=== PATIENT | male | born 1980 | race American Indian/Alaskan Native ===

== ENCOUNTER 2019-02-20 20:39 | Observation (INO) | payer MEDICAID ==
[2019-02-20 21:07] VITALS: BMI 25.1
--- NOTE | 2019-02-20 21:30 | ED PDOC ---
Arrival/HPI - General Chief Complaint: Substance Abuse Historian: Patient - History of Present Illness Narrative History of Present Illness (Text): 02/20/19 21:18 38 y/o male, pmh including menegitis/coma, psychiatric history including depression/anxiety/drug abuse, allergic to morphine and bactrim, c/o depression and drug abuse x 1 day. Pt. stated that he has chronic drug abuse including using marijuanna and K2, stated that he is depress, admits problem with drugs, stated that he wants to speak to a psychiatrist, no chest pain or shortness of breath, no rash, no night sweat, no abdominal pain, no black color stool, no homicidal/suicidal ideation, no auditory or visual hallucination, no other medical or psychological complaints. Past Medical History - Provider Review Nursing Documentation Reviewed: Yes - Infectious Disease Hx of Infectious Diseases: None - Neurological Hx Meningitis: Yes - Psychiatric Hx Substance Use: Yes Other/Comment: Substance abuse - Surgical History Other/Comment: Toe amputation - Anesthesia Hx Anesthesia: Yes Hx Anesthesia Reactions: No Hx Malignant Hyperthermia: No Family/Social History - Physician Review Nursing Documentation Reviewed: Yes Family/Social History: Unknown Family HX Smoking Status: Light Smoker < 10 Cigarettes Daily Hx Alcohol Use: No Hx Substance Use: Yes Substance used: marijuana, k2 Allergies/Home Meds Allergies/Adverse Reactions: Allergies morphine Allergy (Verified 02/20/19 21:07) RASH sulfamethoxazole [From Bactrim] Allergy (Verified 02/20/19 21:06) RASH trimethoprim [From Bactrim] Allergy (Verified 02/20/19 21:06) RASH Home Medications: Home Meds Medication Instructions Recorded Confirmed Clonazepam [Klonopin] 1 tab PO DAILY 02/20/19 02/20/19 Fluoxetine HCl [Prozac] 1 tab PO DAILY 02/20/19 02/20/19 Review of Systems - Review of Systems Constitutional: absent: Fatigue, Fevers Eyes: absent: Vision Changes ENT: absent: Hearing Changes Respiratory: absent: SOB, Cough Cardiovascular: absent: Chest Pain Gastrointestinal: absent: Abdominal Pain, Diarrhea, Nausea, Vomiting Musculoskeletal: absent: Arthralgias, Back Pain Skin: absent: Rash, Pruritis Neurological: absent: Headache, Dizziness Psychiatric: Depression. absent: Anxiety, Suicidal Ideation Physical Exam Vital Signs Reviewed: Yes Temperature: Afebrile Blood Pressure: Normal Pulse: Regular Respiratory Rate: Normal Appearance: Positive for: Well-Appearing, Non-Toxic, Comfortable Pain Distress: None Mental Status: Positive for: Alert and Oriented X 3 - Systems Exam Head: Present: Atraumatic, Normocephalic, Other (bilateral temporal muscle wasting) Pupils: Present: PERRL Extroacular Muscles: Present: EOMI Conjunctiva: Present: Normal Mouth: Present: Moist Mucous Membranes Neck: Present: Normal Range of Motion, Trachea Midline. No: Meningeal Signs, MIDLINE TENDERNESS, Paraspinal Tenderness, Lymphadenopathy Respiratory/Chest: Present: Clear to Auscultation, Good Air Exchange. No: Respiratory Distress, Accessory Muscle Use, Wheezes, Decreased Breath Sounds, Rales, Retracting, Rhonchi, Tachypneic Cardiovascular: Present: Regular Rate and Rhythm, Normal S1, S2. No: Murmurs Abdomen: No: Tenderness, Distention, Peritoneal Signs Rectal: Present: Hemorrhoids, Normal Rectal Tone, Other (Female Verification Specialist CAR STEREO INSTALLERAURELIO Fernandez). No: Occult Blood, Rectal Tenderness, Gross Blood, Melena, Fissures, Nodule/Mass/Lesions Back: Present: Normal Inspection Upper Extremity: Present: Normal Inspection. No: Cyanosis, Edema Lower Extremity: Present: Normal Inspection, Other (bilateral feet with toes amputated noted. ). No: Edema Neurological: Present: GCS=15, CN II-XII Intact, Speech Normal Skin: Present: Warm, Dry, Rashes (Lt. foot dorsum visible superficial skin ulcerated approximately 2cm diameter with no cellulitis or streaking. ), Normal Color Psychiatric: Present: Alert, Oriented x 3, Normal Insight, Normal Concentration Medical Decision Making ED Course and Treatment: 02/20/19 21:39 -labs -ekg -cxr -PES paged 02/20/19 23:20 -EKG: NSR @ 71 BPM, no ST elevation or depression, no T wave inversion -Chest xray ER wet read show no obvious consolidation. -Labs show leukoepnia 1.5 and hgb 9.1, Potassium 3.5 (mildly low, potassium chloride 20meq po ordered). -Guaiac is negative -UA ordered and no result -UDS ordered and no result -Pt. is not medically clear as the source of leukopenia and anemia is uncertain, from his psychiatric medication. Discussed with Dr. Morrell and recommend medical admission. -Keflex/blood culture and wound cultures ordered. -PES notified that the patient will be admitted medically. -Paging the hospitalist Dr. Duran for admission. 02/20/19 23:30 -I spoke to Dr. Duran in person, he request repeat cbc as he is concerning that this is an error prior to the admission but he agreed this patient needs medical work up including any HIV vs. cancer or bone marrow suppression or medication induced?. Case endorsed to Dr. Duran for continuous medical care. -Repeat CBC ordered 02/20/19 23:42 -Repeated CBC confirmed the previous lab work, discussed with Dr. Duran. Keflex po ordered for his lt. foot stump superficial skin breaking. Blood and wound cultured ordered as well. He agreed to admit the patient to hospitalist service for further evaluation and official chest xray interpretation -Case discussed/labs/radiology discussed with Dr. Morrell, he agreed on the plan of care and admission plan. - RAD Interpretation Cushion Stuffer: Radiologist - PA / SUIT MAKER / Resident Statement MD/DO has reviewed & agrees with the documentation as recorded. Disposition/Present on Arrival - Present on Arrival Any Indicators Present on Arrival: No History of DVT/PE: No History of Uncontrolled Diabetes: No Urinary Catheter: No History of Decub. Ulcer: No History Surgical Site Infection Following: None - Disposition Have Diagnosis and Disposition been Completed?: Yes Diagnosis: Depression, Drug abuse, Leukopenia, Anemia, Wound of foot, Muscle wasting, Hypokalemia Disposition: HOSPITALIZED Disposition Time: 23:25 Patient Plan: Observation Condition: STABLE
[2019-02-20 22:16] LABS: BASO # 0.01 K/mm3 (0.0-2.0); BASO % 0.7 % (0.0-3.0); EOS % 1.3 % (1.5-5.0); HEMOGLOBIN 9.1 g/dL (14.0-18.0); LYMPH # 0.5 (1.2-3.4); LYMPH % 34.7 % (22.0-35.0); MEAN CELL VOLUME 89.8 fl (80.0-105.0); MEAN CORPUSCULAR HGB CONC 32.3 g/dl (31.0-37.0); MEAN PLATELET VOLUME 9.7 fl (7.0-11.0); MONO # 0.1 (0.1-0.6); MONO % 8.7 % (1.0-6.0); PLATELET COUNT 194 10^3/uL (120.0-450.0); RBC 3.14 10^6/uL (3.5-6.1); RED CELL DISTRIBUTION WIDTH 18.1 % (11.5-14.5)
[2019-02-20 22:21] LABS: WHITE BLOOD COUNT 1.5 10^3/uL (4.5-11.0)
[2019-02-20 22:28] LABS: ALB/GLOB RATIO 0.8 (1.1-1.8); ALT/SGPT 36 U/L (7-56); AST/SGOT 28 U/L (17-59); BLOOD UREA NITROGEN 15 mg/dL (7-21); CALCIUM 8.7 mg/dL (8.4-10.5); GFR NON-AFRICAN AMERICAN > 60
[2019-02-20 22:32] LABS: ACETAMINOPHEN < 10.0 ug/ml (10.0-20.0); SALICYLATE < 1 mg/dL (2.0-20.0)
[2019-02-20 22:56] LABS: BASOPHIL 1 % (0.0-1.0); LYMPHOCYTE 35 % (22.0-35.0); MONOCYTE 6 % (1.0-6.0); NEUTROPHIL 58 % (50.0-70.0)
[2019-02-20 22:57] LABS: LARGE PLATELETS PRESENT; PLATELET ESTIMATE NORMAL (NORMAL)
[2019-02-21 00:08] LABS: EOS % 0.6 % (1.5-5.0); HEMOGLOBIN 9.1 g/dL (14.0-18.0); LYMPH # 0.6 (1.2-3.4); LYMPH % 36.9 % (22.0-35.0); MEAN CELL VOLUME 89.8 fl (80.0-105.0); MEAN CORPUSCULAR HEMOGLOBIN 28.9 pg (25.0-35.0); MEAN CORPUSCULAR HGB CONC 32.2 g/dl (31.0-37.0); MEAN PLATELET VOLUME 10.7 fl (7.0-11.0); MONO # 0.2 (0.1-0.6); MONO % 14.3 % (1.0-6.0); RBC 3.15 10^6/uL (3.5-6.1); RED CELL DISTRIBUTION WIDTH 18.1 % (11.5-14.5)
[2019-02-21 00:13] LABS: WHITE BLOOD COUNT 1.7 10^3/uL (4.5-11.0)
[2019-02-21] MEDS ORDERED: Potassium Chloride 20 mEq ER Tab PO STA (00:27)
[2019-02-21 01:32] LABS: IRON 33 ug/dL (45-180)
[2019-02-21 01:42] LABS: % IRON SATURATION 15 % (20-55); TOTAL IRON BINDING CAPACITY 219 ug/dL (261-462)
[2019-02-21 01:49] LABS: FREE T4 1.05 ng/dL (0.78-2.19)
--- NOTE | 2019-02-21 02:27 | CP.PCM.HP ---
History of Present Illness - History of Present Illness History of Present Illness: PGY-1 History and Physical [address] Dr. Duran Patient is a 38 year old male with PMHx meningitis/coma (as per ED - patient unable to give medical history). On presentation, patient is found to be somnolent and not easily arousable. He is able to wake up and respond to some questions but not able to cooperate with a complete patient interview. Patient did state that he smoke marijuana and K2, and did deny using any other drugs including IV drugs. Patient denied drinking any alcohol. When asked how he ended up in the hospital, patient states he was brought by his mother. Patient denies hx diabetes when questioned about apparent b/l multiple toe amputations. PMHx: Unable to obtain PSHx: Unable to obtain All: Morphine, Bactrim Social: Unable to obtain Family Hx: Unable to obtain Meds: Unable to obtain Present on Admission - Present on Admission Any Indicators Present on Admission: No Review of Systems - Review of Systems Systems not reviewed;Unavailable: Altered Mental Status, Intoxicated, Uncooperative Past Patient History - Infectious Disease Hx of Infectious Diseases: None - Past Social History Smoking Status: Light Smoker < 10 Cigarettes Daily - NEUROLOGICAL Hx Meningitis: Yes - PSYCHIATRIC Hx Substance Use: Yes Other/Comment: Substance abuse - SURGICAL HISTORY Other/Comment: Toe amputation - ANESTHESIA Hx Anesthesia: Yes Hx Anesthesia Reactions: No Hx Malignant Hyperthermia: No Meds Allergies/Adverse Reactions: Allergies Allergy/AdvReac Type Severity Reaction Status Date / Time morphine Allergy RASH Verified 02/20/19 21:07 sulfamethoxazole Allergy RASH Verified 02/20/19 21:06 [From Bactrim] trimethoprim [From Bactrim] Allergy RASH Verified 02/20/19 21:06 Physical Exam - Constitutional Appears: No Acute Distress Additional comments: Patient intoxicated and somnolent, but in no acute distress - Head Exam Head Exam: ATRAUMATIC, NORMOCEPHALIC - Eye Exam Eye Exam: EOMI, Normal appearance - ENT Exam ENT Exam: Mucous Membranes Moist - Respiratory Exam Respiratory Exam: Clear to Auscultation Bilateral, NORMAL BREATHING PATTERN. absent: Rhonchi, Wheezes - Cardiovascular Exam Cardiovascular Exam: REGULAR RHYTHM, +S1, +S2 - GI/Abdominal Exam GI & Abdominal Exam: Normal Bowel Sounds, Soft. absent: Tenderness - Extremities Exam Additional comments: Apparent amputation of all toes bilaterally. Abscess draining purulent fluid on dorsal aspect of left foot approx 1cm diameter. - Neurological Exam Neurological exam: Oriented x3 Additional comments: Somnolent, not cooperating for complete neuro exam. Patient is A and O x3 - Psychiatric Exam Psychiatric exam: Normal Affect, Normal Mood - Skin Skin Exam: Dry, Intact Additional comments: Decreased skin turgor Results - Vital Signs Recent Vital Signs: Last Vital Signs Temp 96.9 F L 02/21/19 01:52 Pulse 67 02/21/19 01:52 Resp 16 02/21/19 01:52 BP 94/58 L 02/21/19 01:52 Pulse Ox 99 02/21/19 01:52 - Labs Result Diagrams: 02/20/19 23:40 02/20/19 22:12 Labs: Laboratory Results - last 24 hr 02/20/19 02/20/19 02/20/19 22:12 22:12 22:12 WBC RBC Hgb Hct MCV MCH MCHC RDW Plt Count MPV Neut % (Auto) Lymph % (Auto) [place] % (Auto) Eos % (Auto) Baso % (Auto) Lymph # (Auto) [place] # (Auto) Eos # (Auto) Baso # (Auto) Absolute Neuts (auto) Neutrophils % (Manual) Lymphocytes % (Manual) Monocytes % (Manual) Basophils % (Manual) Platelet Evaluation Large Platelets Sodium 139 Potassium 3.5 L Chloride 110 H Carbon Dioxide 21 Anion Gap 12 BUN 15 Creatinine 1.1 Est GFR ( Amer) > 60 Est GFR (Non-Af Amer) > 60 Random Glucose 95 Calcium 8.7 Iron TIBC % Saturation Total Bilirubin 0.1 L AST 28 ALT 36 Alkaline Phosphatase 86 Total Protein 6.6 Albumin 3.0 Globulin 3.6 Albumin/Globulin Ratio 0.8 L Free T4 Salicylates < 1 L Acetaminophen < 10.0 L Alcohol, Quantitative < 10 02/20/19 02/20/19 02/20/19 22:12 22:12 22:12 WBC 1.5 L* RBC 3.14 L Hgb 9.1 L Hct 28.2 L MCV 89.8 MCH 29.0 MCHC 32.3 RDW 18.1 H Plt Count 194 MPV 9.7 Neut % (Auto) 54.6 Lymph % (Auto) 34.7 [place] % (Auto) 8.7 H Eos % (Auto) 1.3 L Baso % (Auto) 0.7 Lymph # (Auto) 0.5 L [place] # (Auto) 0.1 Eos # (Auto) 0.0 Baso # (Auto) 0.01 Absolute Neuts (auto) 0.82 L Neutrophils % (Manual) 58 Lymphocytes % (Manual) 35 Monocytes % (Manual) 6 Basophils % (Manual) 1 Platelet Evaluation Normal Large Platelets Present Sodium Potassium Chloride Carbon Dioxide Anion Gap BUN Creatinine Est GFR ( Amer) Est GFR (Non-Af Amer) Random Glucose Calcium Iron 33 L TIBC 219 L % Saturation 15 L Total Bilirubin AST ALT Alkaline Phosphatase Total Protein Albumin Globulin Albumin/Globulin Ratio Free T4 1.05 Salicylates Acetaminophen Alcohol, Quantitative 02/20/19 23:40 WBC 1.7 L* RBC 3.15 L Hgb 9.1 L Hct 28.3 L MCV 89.8 MCH 28.9 MCHC 32.2 RDW 18.1 H Plt Count 198 MPV 10.7 Neut % (Auto) 48.2 L Lymph % (Auto) 36.9 H [place] % (Auto) 14.3 H Eos % (Auto) 0.6 L Baso % (Auto) 0.0 Lymph # (Auto) 0.6 L [place] # (Auto) 0.2 Eos # (Auto) 0.0 Baso # (Auto) 0.00 Absolute Neuts (auto) 0.81 L Neutrophils % (Manual) Lymphocytes % (Manual) Monocytes % (Manual) Basophils % (Manual) Platelet Evaluation Large Platelets Sodium Potassium Chloride Carbon Dioxide Anion Gap BUN Creatinine Est GFR ( Amer) Est GFR (Non-Af Amer) Random Glucose Calcium Iron TIBC % Saturation Total Bilirubin AST ALT Alkaline Phosphatase Total Protein Albumin Globulin Albumin/Globulin Ratio Free T4 Salicylates Acetaminophen Alcohol, Quantitative Assessment & Plan - Assessment and Plan (Free Text) Assessment: 38 year old male with no confirmed PMHx (meningitis per ED) who admits to marijuana and K2 use who appears somnolent, possibly intoxicated, and found to have leukopenia and anemia on labs and has a small abscess on the right foot about 1 cm diameter draining purulent fluid. Leukopenia -WBC 1.5 - repeated to confirm not due to lab error and repeat WBC 1.7 -HIV 1 and 2 -Vanc, Zosyn Left foot abscess -Cultures (blood, wound, urine) - f/u -Lower extremity US -Pro-chapito -Vanc, Zosyn Altered mental status, potentially due to acute intoxication -Patient admits to active and regular use of marijuana and K2 -Psych consulted. Dr. Johnson-Maddy -EKG NSR at 71 bpm, no ST or T changes -TSH/free T4 - f/u -UDS - f/u -Blood alcohol negative Anemia -HgB 9.1 -Normocytic anemia -Iron, TIBC, B12, folate - f/u PPx -DVT ppx held overnight 2/2 anemia with HgB 9.1. SCDs overnight held due to foot abscess. Assessment and plan d/w Dr. Renee Lerner, PGY-1
[2019-02-21 03:27] VITALS: BP 106/66; PULSE 72; RESP 18; TEMP 97.5; O2SAT 98
[2019-02-21 07:13] LABS: BASO # 0.01 K/mm3 (0.0-2.0); BASO % 0.5 % (0.0-3.0); LYMPH # 0.6 (1.2-3.4); LYMPH % 31.4 % (22.0-35.0); MEAN CELL VOLUME 90.9 fl (80.0-105.0); MEAN CORPUSCULAR HEMOGLOBIN 28.5 pg (25.0-35.0); MEAN CORPUSCULAR HGB CONC 31.3 g/dl (31.0-37.0); MEAN PLATELET VOLUME 9.9 fl (7.0-11.0); MONO # 0.3 (0.1-0.6); MONO % 16.2 % (1.0-6.0); RBC 3.51 10^6/uL (3.5-6.1); RED CELL DISTRIBUTION WIDTH 18.2 % (11.5-14.5)
[2019-02-21 08:35] LABS: ALB/GLOB RATIO 0.8 (1.1-1.8); ALBUMIN 3.1 g/dL (3.0-4.8); ALT/SGPT 38 U/L (7-56); AST/SGOT 30 U/L (17-59); BLOOD UREA NITROGEN 14 mg/dL (7-21); CALCIUM 8.7 mg/dL (8.4-10.5); GFR NON-AFRICAN AMERICAN > 60
--- NOTE | 2019-02-21 08:36 | RAD ---
HISTORY: medical clearance COMPARISON: None available. TECHNIQUE: Chest, one view. FINDINGS: LUNGS: Patchy opacity at the left lung base. Please note that chest x-ray has limited sensitivity for the detection of pulmonary masses. PLEURA: No significant pleural effusion identified. No definite pneumothorax . CARDIOVASCULAR: The cardiomediastinal silhouette appears within normal limits of size. No significant atherosclerotic calcification present. OSSEOUS STRUCTURES: No acute osseous abnormality identified. VISUALIZED UPPER ABDOMEN: Unremarkable. OTHER FINDINGS: None. IMPRESSION: Mild patchy left base atelectasis or pneumonia. Correlate clinically. Study marked for PA review.
--- NOTE | 2019-02-21 09:23 | CARD ---
APPROVED REPORT Date of service: 02/20/2019 EKG Measurement Heart [id number] <Conclusion> Normal sinus rhythm Normal ECG
[2019-02-21] MEDS ORDERED: Piperacillin/Tazobact 3.375 gm 100 ML IVPB SCH (10:00)
[2019-02-21] MEDS ORDERED: Vancomycin 1gm in NS 250ml 1 GM/250 ML BAG IVPB SCH (10:00)
--- NOTE | 2019-02-21 13:27 | CP.PCM.CON ---
<Hi Pedroza - Last Filed: 02/21/19 13:27> History of Present Illness - History of Present Illness History of Present Illness: Hi Pedroza D.O. PGY-3, Internal Medicine Resident, Infectious Disease Consultation Note 38-year-old male with a 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 Infectious disease consultation was requested for patient's neutropenia. Patient was seen and examined at bedside. 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 Patient is very tangential, going from one topic to another and relates how he needs to get all of his money together so that he combine his cell phone because people keep stealing his things. Patient is very focused on getting back to [place] and out of [facility] at this time. States that he feels absolutely fine and has no issues. Patient does have a history of drug abuse including marijuana and K2. At this time denies any nausea vomiting diarrhea constipation lightheadedness headache dysuria urinary frequency urinary urgency or any other concerning signs. Review of Systems - Review of Systems All systems: reviewed and no additional remarkable complaints except (denied all) Past Patient History - Infectious Disease Hx of Infectious Diseases: None - Past Social History Smoking Status: Light Smoker < 10 Cigarettes Daily - NEUROLOGICAL Hx Meningitis: Yes - MUSCULOSKELETAL/RHEUMATOLOGICAL Hx Falls: No - PSYCHIATRIC Hx Substance Use: Yes Other/Comment: Substance abuse - SURGICAL HISTORY Other/Comment: Toe amputation - ANESTHESIA Hx Anesthesia: Yes Hx Anesthesia Reactions: No Hx Malignant Hyperthermia: No Meds Allergies/Adverse Reactions: Allergies Allergy/AdvReac Type Severity Reaction Status Date / Time morphine Allergy RASH Verified 02/20/19 21:07 sulfamethoxazole Allergy RASH Verified 02/20/19 21:06 [From Bactrim] trimethoprim [From Bactrim] Allergy RASH Verified 02/20/19 21:06 Physical Exam - Constitutional Appears: Non-toxic, No Acute Distress - Head Exam Head Exam: ATRAUMATIC, NORMOCEPHALIC - Eye Exam Eye Exam: EOMI. absent: Scleral icterus - ENT Exam ENT Exam: Mucous Membranes Moist - Neck Exam Neck exam: Positive for: Normal Inspection - Respiratory Exam Respiratory Exam: absent: Rales, Rhonchi, Wheezes - Cardiovascular Exam Cardiovascular Exam: +S1, +S2. absent: Gallop, Rubs - GI/Abdominal Exam GI & Abdominal Exam: Normal Bowel Sounds, Soft. absent: Tenderness - Extremities Exam Additional comments: s/p multiple toe amputations - Neurological Exam Neurological exam: Alert, Oriented x3 - Psychiatric Exam Psychiatric exam: Agitated - Skin Skin Exam: Dry, Warm Results - Vital Signs Recent Vital Signs: Last Vital Signs Temp 97.5 F L 02/21/19 02:00 Pulse 72 02/21/19 02:00 Resp 18 02/21/19 02:00 BP 106/66 02/21/19 02:00 Pulse Ox 98 02/21/19 02:00 - Labs Result Diagrams: 02/21/19 06:45 02/21/19 06:45 Labs: Laboratory Results - last 24 hr 02/20/19 02/20/19 02/20/19 22:12 22:12 22:12 WBC RBC Hgb Hct MCV MCH MCHC RDW Plt Count MPV Neut % (Auto) Lymph % (Auto) [place] % (Auto) Eos % (Auto) Baso % (Auto) Lymph # (Auto) [place] # (Auto) Eos # (Auto) Baso # (Auto) Absolute Neuts (auto) Neutrophils % (Manual) Lymphocytes % (Manual) Monocytes % (Manual) Basophils % (Manual) Platelet Evaluation Large Platelets Sodium 139 Potassium 3.5 L Chloride 110 H Carbon Dioxide 21 Anion Gap 12 BUN 15 Creatinine 1.1 Est GFR ( Amer) > 60 Est GFR (Non-Af Amer) > 60 Random Glucose 95 Calcium 8.7 Iron TIBC % Saturation Ferritin Total Bilirubin 0.1 L AST 28 ALT 36 Alkaline Phosphatase 86 Total Protein 6.6 Albumin 3.0 Globulin 3.6 Albumin/Globulin Ratio 0.8 L Free T4 TSH 3rd Generation Salicylates < 1 L Acetaminophen < 10.0 L Alcohol, Quantitative < 10 02/20/19 02/20/19 02/20/19 22:12 22:12 22:12 WBC 1.5 L* RBC 3.14 L Hgb 9.1 L Hct 28.2 L MCV 89.8 MCH 29.0 MCHC 32.3 RDW 18.1 H Plt Count 194 MPV 9.7 Neut % (Auto) 54.6 Lymph % (Auto) 34.7 [place] % (Auto) 8.7 H Eos % (Auto) 1.3 L Baso % (Auto) 0.7 Lymph # (Auto) 0.5 L [place] # (Auto) 0.1 Eos # (Auto) 0.0 Baso # (Auto) 0.01 Absolute Neuts (auto) 0.82 L Neutrophils % (Manual) 58 Lymphocytes % (Manual) 35 Monocytes % (Manual) 6 Basophils % (Manual) 1 Platelet Evaluation Normal Large Platelets Present Sodium Potassium Chloride Carbon Dioxide Anion Gap BUN Creatinine Est GFR ( Amer) Est GFR (Non-Af Amer) Random Glucose Calcium Iron TIBC % Saturation Ferritin 329.0 Total Bilirubin AST ALT Alkaline Phosphatase Total Protein Albumin Globulin Albumin/Globulin Ratio Free T4 1.05 TSH 3rd Generation 1.96 Salicylates Acetaminophen Alcohol, Quantitative 02/20/19 02/20/19 02/21/19 22:12 23:40 06:45 WBC 1.7 L* 2.0 L RBC 3.15 L 3.51 Hgb 9.1 L 10.0 L Hct 28.3 L 31.9 L MCV 89.8 90.9 MCH 28.9 28.5 MCHC 32.2 31.3 RDW 18.1 H 18.2 H Plt Count 198 198 MPV 10.7 9.9 Neut % (Auto) 48.2 L 50.9 Lymph % (Auto) 36.9 H 31.4 [place] % (Auto) 14.3 H 16.2 H Eos % (Auto) 0.6 L 1.0 L Baso % (Auto) 0.0 0.5 Lymph # (Auto) 0.6 L 0.6 L [place] # (Auto) 0.2 0.3 Eos # (Auto) 0.0 0.0 Baso # (Auto) 0.00 0.01 Absolute Neuts (auto) 0.81 L 1.04 L Neutrophils % (Manual) Lymphocytes % (Manual) Monocytes % (Manual) Basophils % (Manual) Platelet Evaluation Large Platelets Sodium Potassium Chloride Carbon Dioxide Anion Gap BUN Creatinine Est GFR ( Amer) Est GFR (Non-Af Amer) Random Glucose Calcium Iron 33 L TIBC 219 L % Saturation 15 L Ferritin Total Bilirubin AST ALT Alkaline Phosphatase Total Protein Albumin Globulin Albumin/Globulin Ratio Free T4 TSH 3rd Generation Salicylates Acetaminophen Alcohol, Quantitative 02/21/19 06:45 WBC RBC Hgb Hct MCV MCH MCHC RDW Plt Count MPV Neut % (Auto) Lymph % (Auto) [place] % (Auto) Eos % (Auto) Baso % (Auto) Lymph # (Auto) [place] # (Auto) Eos # (Auto) Baso # (Auto) Absolute Neuts (auto) Neutrophils % (Manual) Lymphocytes % (Manual) Monocytes % (Manual) Basophils % (Manual) Platelet Evaluation Large Platelets Sodium 140 Potassium 4.2 Chloride 110 H Carbon Dioxide 21 Anion Gap 13 BUN 14 Creatinine 1.2 Est GFR ( Amer) > 60 Est GFR (Non-Af Amer) > 60 Random Glucose 54 L Calcium 8.7 Iron TIBC % Saturation Ferritin Total Bilirubin 0.5 AST 30 ALT 38 Alkaline Phosphatase 91 Total Protein 6.8 Albumin 3.1 Globulin 3.7 Albumin/Globulin Ratio 0.8 L Free T4 TSH 3rd Generation Salicylates Acetaminophen Alcohol, Quantitative Assessment & Plan - Assessment and Plan (Free Text) Assessment: 38-year-old male with a 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 Infectious disease consultation was requested for patient's neutropenia. Plan: Leukopenia most likely secondary to HIV status HIV on ART therapy Began to discuss management with the patient, however at this time he is not a menable to staying in this hospital whatsoever. We discussed the importance of proper stabilization and all of the potential risks that come with leaving right now while he is still being worked up particularly given his symptomatology when he first presented. Patient verbalized understanding all of the risks associated and he wants to shower and then leave AGAINST MEDICAL ADVICE. Discussed with primary care team. They are aware of the situation. Blood and wound cultures have been ordered as well as pro-calcitonin. Patient was encouraged that if in fact he does leave AGAINST MEDICAL ADVICE that he should follow-up with his primary medical doctor as well as his infectious disease doctor and continue on his ART therapy. Patient verbalized understanding and agreement with all of the aforementioned. Patient was seen and examined and case to be discussed with attending physician - Date & Time Date: 02/21/19 Time: 07:30 <Blas Sesay - Last Filed: 02/21/19 17:04> Results - Vital Signs Recent Vital Signs: Last Vital Signs Temp 97.5 F L 02/21/19 02:00 Pulse 72 02/21/19 02:00 Resp 18 02/21/19 02:00 BP 106/66 02/21/19 02:00 Pulse Ox 98 02/21/19 02:00 - Labs Result Diagrams: 02/21/19 06:45 02/21/19 06:45 Labs: Laboratory Results - last 24 hr 02/20/19 02/20/19 02/20/19 22:12 22:12 22:12 WBC RBC Hgb Hct MCV MCH MCHC RDW Plt Count MPV Neut % (Auto) Lymph % (Auto) [place] % (Auto) Eos % (Auto) Baso % (Auto) Lymph # (Auto) [place] # (Auto) Eos # (Auto) Baso # (Auto) Absolute Neuts (auto) Neutrophils % (Manual) Lymphocytes % (Manual) Monocytes % (Manual) Basophils % (Manual) Platelet Evaluation Large Platelets Sodium 139 Potassium 3.5 L Chloride 110 H Carbon Dioxide 21 Anion Gap 12 BUN 15 Creatinine 1.1 Est GFR ( Amer) > 60 Est GFR (Non-Af Amer) > 60 Random Glucose 95 Calcium 8.7 Iron TIBC % Saturation Ferritin Total Bilirubin 0.1 L AST 28 ALT 36 Alkaline Phosphatase 86 Total Protein 6.6 Albumin 3.0 Globulin 3.6 Albumin/Globulin Ratio 0.8 L Vitamin B12 Folate Procalcitonin Free T4 TSH 3rd Generation Salicylates < 1 L Acetaminophen < 10.0 L Alcohol, Quantitative < 10 02/20/19 02/20/19 02/20/19 22:12 22:12 22:12 WBC 1.5 L* RBC 3.14 L Hgb 9.1 L Hct 28.2 L MCV 89.8 MCH 29.0 MCHC 32.3 RDW 18.1 H Plt Count 194 MPV 9.7 Neut % (Auto) 54.6 Lymph % (Auto) 34.7 [place] % (Auto) 8.7 H Eos % (Auto) 1.3 L Baso % (Auto) 0.7 Lymph # (Auto) 0.5 L [place] # (Auto) 0.1 Eos # (Auto) 0.0 Baso # (Auto) 0.01 Absolute Neuts (auto) 0.82 L Neutrophils % (Manual) 58 Lymphocytes % (Manual) 35 Monocytes % (Manual) 6 Basophils % (Manual) 1 Platelet Evaluation Normal Large Platelets Present Sodium Potassium Chloride Carbon Dioxide Anion Gap BUN Creatinine Est GFR ( Amer) Est GFR (Non-Af Amer) Random Glucose Calcium Iron TIBC % Saturation Ferritin 329.0 Total Bilirubin AST ALT Alkaline Phosphatase Total Protein Albumin Globulin Albumin/Globulin Ratio Vitamin B12 266 Folate 4.1 Procalcitonin Free T4 1.05 TSH 3rd Generation 1.96 Salicylates Acetaminophen Alcohol, Quantitative 02/20/19 02/20/19 02/21/19 22:12 23:40 01:35 WBC 1.7 L* RBC 3.15 L Hgb 9.1 L Hct 28.3 L MCV 89.8 MCH 28.9 MCHC 32.2 RDW 18.1 H Plt Count 198 MPV 10.7 Neut % (Auto) 48.2 L Lymph % (Auto) 36.9 H [place] % (Auto) 14.3 H Eos % (Auto) 0.6 L Baso % (Auto) 0.0 Lymph # (Auto) 0.6 L [place] # (Auto) 0.2 Eos # (Auto) 0.0 Baso # (Auto) 0.00 Absolute Neuts (auto) 0.81 L Neutrophils % (Manual) Lymphocytes % (Manual) Monocytes % (Manual) Basophils % (Manual) Platelet Evaluation Large Platelets Sodium Potassium Chloride Carbon Dioxide Anion Gap BUN Creatinine Est GFR ( Amer) Est GFR (Non-Af Amer) Random Glucose Calcium Iron 33 L TIBC 219 L % Saturation 15 L Ferritin Total Bilirubin AST ALT Alkaline Phosphatase Total Protein Albumin Globulin Albumin/Globulin Ratio Vitamin B12 Folate Procalcitonin < 0.05 L Free T4 TSH 3rd Generation Salicylates Acetaminophen Alcohol, Quantitative 02/21/19 02/21/19 06:45 06:45 WBC 2.0 L RBC 3.51 Hgb 10.0 L Hct 31.9 L MCV 90.9 MCH 28.5 MCHC 31.3 RDW 18.2 H Plt Count 198 MPV 9.9 Neut % (Auto) 50.9 Lymph % (Auto) 31.4 [place] % (Auto) 16.2 H Eos % (Auto) 1.0 L Baso % (Auto) 0.5 Lymph # (Auto) 0.6 L [place] # (Auto) 0.3 Eos # (Auto) 0.0 Baso # (Auto) 0.01 Absolute Neuts (auto) 1.04 L Neutrophils % (Manual) Lymphocytes % (Manual) Monocytes % (Manual) Basophils % (Manual) Platelet Evaluation Large Platelets Sodium 140 Potassium 4.2 Chloride 110 H Carbon Dioxide 21 Anion Gap 13 BUN 14 Creatinine 1.2 Est GFR ( Amer) > 60 Est GFR (Non-Af Amer) > 60 Random Glucose 54 L Calcium 8.7 Iron TIBC % Saturation Ferritin Total Bilirubin 0.5 AST 30 ALT 38 Alkaline Phosphatase 91 Total Protein 6.8 Albumin 3.1 Globulin 3.7 Albumin/Globulin Ratio 0.8 L Vitamin B12 Folate Procalcitonin Free T4 TSH 3rd Generation Salicylates Acetaminophen Alcohol, Quantitative Attending/Attestation - Attestation I have personally seen and examined this patient.: Yes I have fully participated in the care of the patient.: Yes I have reviewed all pertinent clinical information: Yes
[2019-02-21 13:48] LABS: FOLATE 4.1 ng/mL
--- NOTE | 2019-02-21 15:12 | CP.PCM.DIS ---
<Angel Minor - Last Filed: 02/21/19 15:04> Provider - Provider Date of Admission: 02/21/19 00:16 Attending physician: Remington Hernandez MD Consults: 02/21/19 07:26 Physician Consult Routine Comment: Consulting Provider: Laura Robledo Consulting Physician: Laura Robledo Reason for Consult: schizophrenia Physician Consult Routine Comment: Consulting Provider: Portillo Cordero Consulting Physician: Portillo Cordero Reason for Consult: neutropenic Time Spent in preparation of Discharge (in minutes): 35 Hospital Course - Lab Results Lab Results: Most Recent Lab Values WBC 2.0 10^3/uL (4.5-11.0) L 02/21/19 06:45 RBC 3.51 10^6/uL (3.5-6.1) 02/21/19 06:45 Hgb 10.0 g/dL (14.0-18.0) L 02/21/19 06:45 Hct 31.9 % (42.0-52.0) L 02/21/19 06:45 MCV 90.9 fl (80.0-105.0) 02/21/19 06:45 MCH 28.5 pg (25.0-35.0) 02/21/19 06:45 MCHC 31.3 g/dl (31.0-37.0) 02/21/19 06:45 RDW 18.2 % (11.5-14.5) H 02/21/19 06:45 Plt Count 198 10^3/uL (120.0-450.0) 02/21/19 06:45 MPV 9.9 fl (7.0-11.0) 02/21/19 06:45 Neut % (Auto) 50.9 % (50.0-68.0) 02/21/19 06:45 Lymph % (Auto) 31.4 % (22.0-35.0) 02/21/19 06:45 [place] % (Auto) 16.2 % (1.0-6.0) H 02/21/19 06:45 Eos % (Auto) 1.0 % (1.5-5.0) L 02/21/19 06:45 Baso % (Auto) 0.5 % (0.0-3.0) 02/21/19 06:45 Lymph # (Auto) 0.6 (1.2-3.4) L 02/21/19 06:45 [place] # (Auto) 0.3 (0.1-0.6) 02/21/19 06:45 Eos # (Auto) 0.0 (0.0-0.7) 02/21/19 06:45 Baso # (Auto) 0.01 K/mm3 (0.0-2.0) 02/21/19 06:45 Absolute Neuts (auto) 1.04 (1.4-6.5) L 02/21/19 06:45 Neutrophils % (Manual) 58 % (50.0-70.0) 02/20/19 22:12 Lymphocytes % (Manual) 35 % (22.0-35.0) 02/20/19 22:12 Monocytes % (Manual) 6 % (1.0-6.0) 02/20/19 22:12 Basophils % (Manual) 1 % (0.0-1.0) 02/20/19 22:12 Platelet Evaluation Normal (NORMAL) 02/20/19 22:12 Large Platelets Present 02/20/19 22:12 Sodium 140 mmol/L (132-148) 02/21/19 06:45 Potassium 4.2 mmol/L (3.6-5.0) 02/21/19 06:45 Chloride 110 mmol/L (98-107) H 02/21/19 06:45 Carbon Dioxide 21 mmol/L (21-33) 02/21/19 06:45 Anion Gap 13 (10-20) 02/21/19 06:45 BUN 14 mg/dL (7-21) 02/21/19 06:45 Creatinine 1.2 mg/dl (0.8-1.5) 02/21/19 06:45 Est GFR ( Amer) > 60 02/21/19 06:45 Est GFR (Non-Af Amer) > 60 02/21/19 06:45 Random Glucose 54 mg/dL (70-110) L 02/21/19 06:45 Calcium 8.7 mg/dL (8.4-10.5) 02/21/19 06:45 Iron 33 ug/dL (45-180) L 02/20/19 22:12 TIBC 219 ug/dL (261-462) L 02/20/19 22:12 % Saturation 15 % (20-55) L 02/20/19 22:12 Ferritin 329.0 ng/mL 02/20/19 22:12 Total Bilirubin 0.5 mg/dL (0.2-1.3) 02/21/19 06:45 AST 30 U/L (17-59) 02/21/19 06:45 ALT 38 U/L (7-56) 02/21/19 06:45 Alkaline Phosphatase 91 U/L (38-126) 02/21/19 06:45 Total Protein 6.8 g/dL (5.8-8.3) 02/21/19 06:45 Albumin 3.1 g/dL (3.0-4.8) 02/21/19 06:45 Globulin 3.7 gm/dL 02/21/19 06:45 Albumin/Globulin Ratio 0.8 (1.1-1.8) L 02/21/19 06:45 Vitamin B12 266 pg/mL (239-931) 02/20/19 22:12 Folate 4.1 ng/mL 02/20/19 22:12 Procalcitonin < 0.05 NG/ML (0.19-0.49) L 02/21/19 01:35 Free T4 1.05 ng/dL (0.78-2.19) 02/20/19 22:12 TSH 3rd Generation 1.96 mIU/mL (0.46-4.68) 02/20/19 22:12 Salicylates < 1 mg/dL (2.0-20.0) L 02/20/19 22:12 Acetaminophen < 10.0 ug/ml (10.0-20.0) L 02/20/19 22:12 Alcohol, Quantitative < 10 mg/dL (0-10) 02/20/19 22:12 - Hospital Course Hospital Course: Angel Minor, PGY1 Discharge Summary for Dr. Hernandez Patient is a 38 year old male with PMHx meningitis, HIV (on HAART), bilateral lower extremity TMA (8 years ago), mental retardation, ?schizophrenia who presented to the ED somnolent and altered mental status. He was able to wake up and respond to some questions but not able to cooperate with a complete patient interview. Patient did state that he smoked marijuana and K2, and did deny using any other drugs including IV drugs. Patient denied drinking any alcohol. When asked how he ended up in the hospital, patient stated he was brought by his mother. Patient admitted for altered mental status likely due to drug abuse. Patient's mental status improved when hew as seen by the morning team. Psych was placed on board given that he may have had previous history of schizophrenia. On labs, patient was noted to be neutropenic and placed on neutropenic precautions. WBC was 1.7 and trended to 2.0. He is afebrile and his remaining vital signs were stable. He is now AAOx3. Patient is grossly denying any symptoms and says he does not want to stay in the hospital. Patient's neutropenia is likely 2/2 HIV/AIDS and history of non-compliance. Patient decided that he wanted to sign out against medical advice. Patient explained the risks of signing out and he verbalized understanding. He has full capacity to make a decision. Patient signed out against medical advice later after rounds. Discharge Exam - Head Exam Head Exam: ATRAUMATIC, NORMAL INSPECTION, NORMOCEPHALIC - Eye Exam Eye Exam: Normal appearance Pupil Exam: NORMAL ACCOMODATION, PERRL - ENT Exam ENT Exam: Normal Exam - Neck Exam Neck exam: Normal Inspection - Respiratory Exam Respiratory Exam: Clear to PA & Lateral. absent: Rales, Rhonchi, Wheezes - Cardiovascular Exam Cardiovascular Exam: RRR, +S1, +S2 - GI/Abdominal Exam GI & Abdominal Exam: Normal Bowel Sounds, Soft. absent: Tenderness - Extremities Exam Additional comments: Bilateral TMA amputations. No signs of active infections. - Neurological Exam Neurological exam: Alert, CN II-XII Intact, Oriented x3 - Psychiatric Exam Psychiatric exam: Normal Affect, Normal Mood - Skin Skin Exam: Dry, Intact, Normal Color, Warm Discharge Plan - Follow Up Plan Condition: STABLE Disposition: AGAINST MEDICAL ADVICE Additional Instructions: You are leaving against medical advice. <Remington Hernandez - Last Filed: 02/21/19 15:33> Provider - Provider Date of Admission: 02/21/19 00:16 Attending physician: Remignton Hernandez MD Consults: 02/21/19 07:26 Physician Consult Routine Comment: Consulting Provider: Laura Robledo Consulting Physician: Laura Robledo Reason for Consult: schizophrenia Physician Consult Routine Comment: Consulting Provider: Portillo Cordero Consulting Physician: Portillo Cordero Reason for Consult: neutropenic Hospital Course - Lab Results Lab Results: Micro Results 02/20/19 23:40 Abscess - Abscess Gram Stain - Final Most Recent Lab Values WBC 2.0 10^3/uL (4.5-11.0) L 02/21/19 06:45 RBC 3.51 10^6/uL (3.5-6.1) 02/21/19 06:45 Hgb 10.0 g/dL (14.0-18.0) L 02/21/19 06:45 Hct 31.9 % (42.0-52.0) L 02/21/19 06:45 MCV 90.9 fl (80.0-105.0) 02/21/19 06:45 MCH 28.5 pg (25.0-35.0) 02/21/19 06:45 MCHC 31.3 g/dl (31.0-37.0) 02/21/19 06:45 RDW 18.2 % (11.5-14.5) H 02/21/19 06:45 Plt Count 198 10^3/uL (120.0-450.0) 02/21/19 06:45 MPV 9.9 fl (7.0-11.0) 02/21/19 06:45 Neut % (Auto) 50.9 % (50.0-68.0) 02/21/19 06:45 Lymph % (Auto) 31.4 % (22.0-35.0) 02/21/19 06:45 [place] % (Auto) 16.2 % (1.0-6.0) H 02/21/19 06:45 Eos % (Auto) 1.0 % (1.5-5.0) L 02/21/19 06:45 Baso % (Auto) 0.5 % (0.0-3.0) 02/21/19 06:45 Lymph # (Auto) 0.6 (1.2-3.4) L 02/21/19 06:45 [place] # (Auto) 0.3 (0.1-0.6) 02/21/19 06:45 Eos # (Auto) 0.0 (0.0-0.7) 02/21/19 06:45 Baso # (Auto) 0.01 K/mm3 (0.0-2.0) 02/21/19 06:45 Absolute Neuts (auto) 1.04 (1.4-6.5) L 02/21/19 06:45 Neutrophils % (Manual) 58 % (50.0-70.0) 02/20/19 22:12 Lymphocytes % (Manual) 35 % (22.0-35.0) 02/20/19 22:12 Monocytes % (Manual) 6 % (1.0-6.0) 02/20/19 22:12 Basophils % (Manual) 1 % (0.0-1.0) 02/20/19 22:12 Platelet Evaluation Normal (NORMAL) 02/20/19 22:12 Large Platelets Present 02/20/19 22:12 Sodium 140 mmol/L (132-148) 02/21/19 06:45 Potassium 4.2 mmol/L (3.6-5.0) 02/21/19 06:45 Chloride 110 mmol/L (98-107) H 02/21/19 06:45 Carbon Dioxide 21 mmol/L (21-33) 02/21/19 06:45 Anion Gap 13 (10-20) 02/21/19 06:45 BUN 14 mg/dL (7-21) 02/21/19 06:45 Creatinine 1.2 mg/dl (0.8-1.5) 02/21/19 06:45 Est GFR ( Amer) > 60 02/21/19 06:45 Est GFR (Non-Af Amer) > 60 02/21/19 06:45 Random Glucose 54 mg/dL (70-110) L 02/21/19 06:45 Calcium 8.7 mg/dL (8.4-10.5) 02/21/19 06:45 Iron 33 ug/dL (45-180) L 02/20/19 22:12 TIBC 219 ug/dL (261-462) L 02/20/19 22:12 % Saturation 15 % (20-55) L 02/20/19 22:12 Ferritin 329.0 ng/mL 02/20/19 22:12 Total Bilirubin 0.5 mg/dL (0.2-1.3) 02/21/19 06:45 AST 30 U/L (17-59) 02/21/19 06:45 ALT 38 U/L (7-56) 02/21/19 06:45 Alkaline Phosphatase 91 U/L (38-126) 02/21/19 06:45 Total Protein 6.8 g/dL (5.8-8.3) 02/21/19 06:45 Albumin 3.1 g/dL (3.0-4.8) 02/21/19 06:45 Globulin 3.7 gm/dL 02/21/19 06:45 Albumin/Globulin Ratio 0.8 (1.1-1.8) L 02/21/19 06:45 Vitamin B12 266 pg/mL (239-931) 02/20/19 22:12 Folate 4.1 ng/mL 02/20/19 22:12 Procalcitonin < 0.05 NG/ML (0.19-0.49) L 02/21/19 01:35 Free T4 1.05 ng/dL (0.78-2.19) 02/20/19 22:12 TSH 3rd Generation 1.96 mIU/mL (0.46-4.68) 02/20/19 22:12 Salicylates < 1 mg/dL (2.0-20.0) L 02/20/19 22:12 Acetaminophen < 10.0 ug/ml (10.0-20.0) L 02/20/19 22:12 Alcohol, Quantitative < 10 mg/dL (0-10) 02/20/19 22:12 Attending/Attestation - Attestation I have personally seen and examined this patient.: Yes I have fully participated in the care of the patient.: Yes I have reviewed all pertinent clinical information, including history, physical exam and plan: Yes Notes (Text): 02/21/19 15:32 Patient was alert,awake and oriented. The need of stay in the hospital was discussed but patient has refused to stay in the hospital. He has signed AMA. Prognosis is guarded.
--- NOTE | 2019-02-21 18:24 | ED PDOC ---
ED Additional Note - Physician Additional Note Physician Additional Note: Attempted to call patient regarding his updated CXR as shown below. Unable to reach patient, unable to leave message at this time. Needs 2nd call. CXR: FINDINGS: LUNGS: Patchy opacity at the left lung base. Please note that chest x-ray has limited sensitivity for the detection of pulmonary masses. PLEURA: No significant pleural effusion identified. No definite pneumothorax . CARDIOVASCULAR: The cardiomediastinal silhouette appears within normal limits of size. No significant atherosclerotic calcification present. OSSEOUS STRUCTURES: No acute osseous abnormality identified. VISUALIZED UPPER ABDOMEN: Unremarkable. OTHER FINDINGS: None. IMPRESSION: Mild patchy left base atelectasis or pneumonia. Correlate clinically. Study marked for PA review.
--- NOTE | 2019-02-22 03:00 | CON ---
DATE OF CONSULTATION: 02/21/2019 HISTORY OF PRESENT ILLNESS: In short, the patient is a 38-year-old -Citizen Of [place] male, multiple medical problems including past history of meningitis, HIV, borderline intellectual functioning, questionable schizophrenia. The patient was admitted on the medical side for evaluation of neutropenia. Psych consult was called for evaluation of the patient's mood and questionable history of mental illness. The patient was seen and examined today. The patient presented to be alert. There is some cognitive limitation obviously. Overall, the patient presented okay. The patient reported that his mother brought him to the hospital, and the patient is not aware what was the problem back then. The patient reported that he has history of depression and he needs to be on Prozac as well as Klonopin. The patient reported "I am edgy right now because I am due for my dose of Klonopin." The patient reported that he does not have history of hearing voices, denied paranoid ideation. The patient denied any thoughts of harming himself or others. Denied intents or plan. The patient reported that he fills his medications at [facility] as well as [facility], phone number for [facility] is [phone]. The patient was prescribed Prozac 40 mg daily, gabapentin 100 mg three times a day, Klonopin 2 mg daily, last time the patient filled medication in January. Prescriber is Mady Plasencia. Phone number for [facility] [phone]. The patient last filled medication was on 02/01/2019. The patient was on BuSpar 30 mg twice a day by Dr. Js Mccurdy, Klonopin 1 mg twice a day, same prescriber; gabapentin 100 mg at the nighttime, and vitamin D weekly. Going back to the patient, the patient denied that he ever been admitted to the Psychiatric Inpatient Unit. The patient denied that he ever tried to kill himself in the past. The patient reported no concerns during this senior writer's evaluation besides dose of Klonopin. MEDICATIONS: Medications reviewed. Tylenol, Keflex, Zosyn, K-Dur, and vancomycin. LABORATORY DATA: Labs reviewed. White blood cells is getting better 2.0 today. Hemoglobin and hematocrit are 10.0 and 31.9. Chemistry reviewed. Toxicology reviewed. Microbiology is reviewed. MENTAL STATUS EXAMINATION: The patient presented to be alert, somewhat edgy. Mood described as okay. Affect was labile. Thought process circumstantial, but not tangential. 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 The patient reported that he is Mr. Guy and presented to be grandiose, delusions of grandeur. Insight and judgment seem to be limited. Impulses are controlled so far. IMPRESSION: Rule out bipolar disorder. Rule out mood disorder due to general medical condition, history of substance abuse, marijuana and K2. PLAN: Medications confirmed and planning to resume. Later on this senior writer got to know that the patient was discharged. Meanwhile, the patient has followup appointment, established his report with his outpatient psychiatrist. The patient pose no imminent danger to self or others. Should you have any questions give me a call back. Laura Robledo MD [facility]
--- NOTE | 2019-02-23 18:34 | ED PDOC ---
ED Additional Note - Physician Additional Note Physician Additional Note: 2nd call placed to patient; regarding both wound culture and CXR: no answer; unable to leave voicemail. Certified letter will be sent. information given to [facility] to send certified letter regarding both wound culture and cxr. wound culture; + MRSA cxr; LUNGS: Patchy opacity at the left lung base. Please note that chest x-ray has limited sensitivity for the detection of pulmonary masses. PLEURA: No significant pleural effusion identified. No definite pneumothorax . CARDIOVASCULAR: The cardiomediastinal silhouette appears within normal limits of size. No significant atherosclerotic calcification present. OSSEOUS STRUCTURES: No acute osseous abnormality identified. VISUALIZED UPPER ABDOMEN: Unremarkable. OTHER FINDINGS: None. IMPRESSION: Mild patchy left base atelectasis or pneumonia. Correlate clinically. Study marked for PA review.
== END 2019-02-21 13:05 | disposition left against medical advice (07) ==
LOC: ED 20:39 → ERH 02-21 00:16 → 5RNO 02-21 02:53
PROVIDERS: ADMIT Internal Medicine; ATTEND Internal Medicine
DX: R41.82 Altered mental status, unspecified (principal); B20 Human immunodeficiency virus [HIV] disease; D70.4 Cyclic neutropenia; E87.6 Hypokalemia; L02.612 Cutaneous abscess of left foot; M62.50 Muscle wasting and atrophy, not elsewhere classified, unspecified site; D64.9 Anemia, unspecified; F32.9 Major depressive disorder, single episode, unspecified; F79 Unspecified intellectual disabilities; F20.9 Schizophrenia, unspecified; F12.10 Cannabis abuse, uncomplicated; D72.819 Decreased white blood cell count, unspecified; Z86.61 Personal history of infections of the central nervous system; Z87.891 Personal history of nicotine dependence; Z91.19 Patient's noncompliance with other medical treatment and regimen; Z89.429 Acquired absence of other toe(s), unspecified side; Z88.5 Allergy status to narcotic agent
CPT/HCPCS: 36415; 71045; 80053; 80320; 80329; 82607; 82728; 82746; 83540; 83550; 84145; 84439; 84443; 85025; 87040; 87070; 87181; 87389; 93005; 99285; G0378